=== PATIENT | male | born 1970 | race Caucasian/White ===

== ENCOUNTER 2025-06-02 19:05 | Inpatient (IN) | payer OTHER ==
[~2025-06-02] VITALS: Ht 180.3 cm; Wt 103.9 kg
[2025-06-02 20:23] LABS: APPEARANCE,URINE CLEAR (CLEAR); BLOOD, URINE 1+ Ery/uL (NEGATIVE); LEUKOCYTE ESTERASE ,URINE NEGATIVE (NEGATIVE); NITRITE, URINE NEGATIVE (NEGATIVE); UGLUCOSE NEGATIVE (NEGATIVE)
[2025-06-02 20:34] LABS: SQUAMOUS EPITHELIAL CELL,UR Moderate /HPF (None Seen)
[2025-06-02] MEDS ORDERED: FUROSEMIDE 40 MG/4 ML VIAL ONE (20:39)
[2025-06-02 20:40] LABS: ADD URINE CULTURE NO
[2025-06-02] MEDS: FUROSEMIDE 40 MG/4 ML VIAL IV ONE (20:50)
[2025-06-02 20:52] LABS: PLATELET COUNT (AUTO) 364 K/uL (150-450); RED BLOOD CELL COUNT(AUTO) 4.85 MIL/uL (4.5-6.0); RED CELL DISTRIBUTION WIDTH 17.4 % (11.5-15.0); WHITE BLOOD COUNT (AUTO) 6.2 K/uL (4.3-11.0)
[2025-06-02 20:55] LABS: ACETONE, SERUM NEGATIVE (NEGATIVE)
[2025-06-02 20:58] LABS: CALCIUM, SERUM 8.1 mg/dL (8.5-10.1); CREATININE 1.8 mg/dL (0.6-1.3); SODIUM SERUM 139 mmol/L (136-145); UREA NITROGEN, BLOOD 29 mg/dL (7-18)
[2025-06-02 21:01] LABS: ALCOHOL, BLOOD 34 mg/dL (0-10)
[2025-06-02 21:10] LABS: ASPARTATE AMINOTRANSFERASE 31 U/L (15-37); NT-PRO BNP 6028 pg/mL (0-125); TOTAL PROTEIN, SERUM 5.8 g/dL (6.4-8.2)
[2025-06-02 22:12] LABS: FLOW, VBG 0.00 L/min (0.00-30.00); FRACTIONATED INSPIRED OXYGEN-V 21.0 %; SITE, VBG VBG - N/A; VBG BASE EXCESS -2.6 mmol/L (-2.0-3.0); VBG HCO3 19.9 mmol/L (22.0-29.0); VBG MetHb 0.3 % (0.5-1.5); VBG OXYGEN SATURATION 91.3 % (60.0-85.0); VBG PCO2 28.5 mmHg (38.0-54.0); VBG PH 7.462 (7.320-7.430); VBG PO2 63.5 mmHg (23.0-48.0); VBG TOTAL HEMOGLOBIN 13.7 G/dL (13.5-17.5)
[2025-06-02] MEDS ORDERED: Z GUARD REMEDY 4 OZ OINT TP PRN (22:30)
[2025-06-02] MEDS ORDERED: DEXTROSE 50%-WATER 50 ML DISP.SYRIN IV PRN (22:30)
[2025-06-02] MEDS ORDERED: ACETAMINOPHEN 325 MG TABLET PO PRN (22:30)
[2025-06-02 22:46] VITALS: BP 150/113; TEMP 97.9; O2SAT 99
[2025-06-02 23:00] VITALS: BP 150/113; TEMP 97.9; O2SAT 98
[2025-06-02] MEDS: HEPARIN SODIUM, PORCINE 5000 UNITS/1 ML VIAL SQ SCH (23:15)
[2025-06-02] MEDS ORDERED: LORAZEPAM 1 MG TABLET PO PRN ×2 (23:30)
[2025-06-03] VITALS (8 sets, daily range): BP systolic 138–161; BP diastolic 91–128; TEMP 97.5–98.5; O2SAT 93–100
[2025-06-03 03:53] LABS: BARBITURATE, URINE NEGATIVE (NEGATIVE); BENZODIAZEPINE, URINE NEGATIVE (NEGATIVE); CANNABINOID, URINE NEGATIVE (NEGATIVE); COCCAINE, URINE NEGATIVE (NEGATIVE); OPIATE, URINE NEGATIVE (NEGATIVE)
[2025-06-03 03:54] LABS: AMPHETAMINE, URINE POSITIVE (NEGATIVE)
[2025-06-03] MEDS: INSULIN REGULAR, HUMAN 100 UNIT/ML 3 ML VIAL SQ PRN (06:37)
[2025-06-03] MEDS: BLOOD SUGAR DIAGNOSTIC 1 EACH STRIP IN SCH (06:38)
[2025-06-03] MEDS: PANTOPRAZOLE 40 MG TABLET.DR PO SCH (08:15)
[2025-06-03] MEDS: FUROSEMIDE 40 MG/4 ML VIAL IV SCH (08:16)
[2025-06-03] MEDS: MULTIVIT W/MINERALS 1 TAB TABLET PO SCH (08:16)
[2025-06-03] MEDS: THIAMINE HCL 100 MG TABLET PO SCH (08:16)
[2025-06-03] MEDS: FOLIC ACID 1 MG TABLET PO SCH (08:16)
[2025-06-03 12:28] LABS: CALCIUM, SERUM 8.3 mg/dL (8.5-10.1); CREATININE 1.7 mg/dL (0.6-1.3); PHOSPHORUS 5.2 mg/dL (2.5-4.9); SODIUM SERUM 141.0 mmol/L (136-145); UREA NITROGEN, BLOOD 26.0 mg/dL (7-18)
[2025-06-03 12:31] LABS: LDL 46.0 mg/dL (0-99)
[2025-06-03 12:38] LABS: PLATELET COUNT (AUTO) 393 K/uL (150-450); RED BLOOD CELL COUNT(AUTO) 5.11 MIL/uL (4.5-6.0); RED CELL DISTRIBUTION WIDTH 17.3 % (11.5-15.0); WHITE BLOOD COUNT (AUTO) 6.7 K/uL (4.3-11.0)
[2025-06-03] MEDS: POTASSIUM CHLORIDE 20 MEQ TAB.PRT.SR PO SCH (15:42)
[2025-06-03 16:20] LABS: CREATININE, URINE < 13.0 MG/DL (30.0-125.0); URINE SODIUM, RANDOM 99 mmol/l (40-220); URINE TOTAL PROTEIN 15.3 mg/dL (0-11.9)
[2025-06-04] VITALS (8 sets, daily range): BP systolic 113–174; BP diastolic 97–138; TEMP 97.3–98.4; O2SAT 97–100
[2025-06-04] MEDS: ZOLPIDEM TARTRATE 5 MG TABLET PO PRN (01:02)
[2025-06-04] MEDS: ONDANSETRON HCL/PF 4 MG/2 ML VIAL IVP PRN (01:55)
[2025-06-04] MEDS ORDERED: BISACODYL SUPP (10 MG) 10 MG/SUPP.RECT SUPP.RECT RC PRN (03:30)
[2025-06-04] MEDS ORDERED: HYDROCODONE/APAP 5/325MG TABLET ONE (07:03)
[2025-06-04] MEDS: HYDROCODONE/APAP 5/325MG TABLET PO ONE ×2 (07:06→20:40)
[2025-06-04 07:30] LABS: PLATELET COUNT (AUTO) 368 K/uL (150-450); RED BLOOD CELL COUNT(AUTO) 5.15 MIL/uL (4.5-6.0); RED CELL DISTRIBUTION WIDTH 17.7 % (11.5-15.0); WHITE BLOOD COUNT (AUTO) 7.6 K/uL (4.3-11.0)
[2025-06-04 07:54] LABS: CREATINE KINASE, TOTAL 195.0 U/L (39-308)
[2025-06-04 07:57] LABS: ASPARTATE AMINOTRANSFERASE 38.0 U/L (15-37); CALCIUM, SERUM 7.9 mg/dL (8.5-10.1); CREATININE 1.9 mg/dL (0.6-1.3); PHOSPHORUS 4.4 mg/dL (2.5-4.9); SODIUM SERUM 139.0 mmol/L (136-145); TOTAL PROTEIN, SERUM 5.9 g/dL (6.4-8.2); UREA NITROGEN, BLOOD 32.0 mg/dL (7-18)
[2025-06-04] MEDS: FUROSEMIDE 100 MG/10 ML VIAL IV SCH (10:41)
[2025-06-04] MEDS: POTASSIUM CHLORIDE 20 MEQ TAB.PRT.SR PO ONE (10:41)
[2025-06-05 07:20] LABS: PLATELET COUNT (AUTO) 308 K/uL (150-450); RED BLOOD CELL COUNT(AUTO) 4.85 MIL/uL (4.5-6.0); RED CELL DISTRIBUTION WIDTH 17.3 % (11.5-15.0); WHITE BLOOD COUNT (AUTO) 5.3 K/uL (4.3-11.0)
[2025-06-05 07:45] LABS: ASPARTATE AMINOTRANSFERASE 26.0 U/L (15-37); CALCIUM, SERUM 7.4 mg/dL (8.5-10.1); CREATININE 1.7 mg/dL (0.6-1.3); PHOSPHORUS 4.2 mg/dL (2.5-4.9); SODIUM SERUM 138.0 mmol/L (136-145); TOTAL PROTEIN, SERUM 5.3 g/dL (6.4-8.2); UREA NITROGEN, BLOOD 29.0 mg/dL (7-18)
[2025-06-05 08:19] VITALS: BP 132/96; TEMP 98.4; O2SAT 99
[2025-06-05] MEDS: MAGNESIUM OXIDE 400 MG TABLET PO ONE (10:22)
[2025-06-05] MEDS: POTASSIUM CHLORIDE 20 MEQ TAB.PRT.SR PO ONE (10:22)
[2025-06-05] MEDS ORDERED: HYDR-4076 PO (10:33)
[2025-06-05] MEDS ORDERED: FURO-145 PO (10:33)
[2025-06-05 11:45] VITALS: BP 144/98; TEMP 98.3; O2SAT 99
[2025-06-05] MEDS: MUPIROCIN OINT 2% 22 GM TUBE TP SCH (11:50)
[2025-06-05 12:17] VITALS: BP 140/98
[2025-06-05 14:07] LABS: PTH, INTACT 64 pg/mL (15-65)
== END 2025-06-05 13:16 | disposition home or self-care (01) | DRG 194 ==
LOC: ER 19:15 → MED 22:23 → TELE 22:38
PROVIDERS: ADMIT Registered Nurse Psychiatric/Mental Health; ATTEND Internal Medicine
DX: I13.0 Hypertensive heart and chronic kidney disease with heart failure and stage 1 through stage 4 chronic kidney disease, or unspecified chronic kidney disease (principal); E44.1 Mild protein-calorie malnutrition; E83.51 Hypocalcemia; E88.09 Other disorders of plasma-protein metabolism, not elsewhere classified; D63.8 Anemia in other chronic diseases classified elsewhere; E11.22 Type 2 diabetes mellitus with diabetic chronic kidney disease; N17.9 Acute kidney failure, unspecified; N18.9 Chronic kidney disease, unspecified; E83.42 Hypomagnesemia; E87.6 Hypokalemia; I50.23 Acute on chronic systolic (congestive) heart failure; E78.5 Hyperlipidemia, unspecified; F15.10 Other stimulant abuse, uncomplicated; F17.210 Nicotine dependence, cigarettes, uncomplicated; E11.65 Type 2 diabetes mellitus with hyperglycemia; Z68.31 Body mass index [BMI] 31.0-31.9, adult; Z59.00 Homelessness unspecified; Z71.6 Tobacco abuse counseling; F10.10 Alcohol abuse, uncomplicated; S69.81XA Other specified injuries of right wrist, hand and finger(s), initial encounter; W19.XXXA Unspecified fall, initial encounter; Y93.9 Activity, unspecified; Y92.89 Other specified places as the place of occurrence of the external cause
CPT/HCPCS: 36415; 71045-TC; 73120-TC; 76770-TC; 80048-TC; 80053-TC; 80061-TC; 80076-TC; 81001; 82010-TC; 82550-TC; 82570-TC; 82803-TC; 82962-TC; 83735-TC; 83880; 83970; 84100-TC; 84155; 84165; 84300-TC; 84484-TC; 85025-TC; 87081-TC; 93307-TC; G0378; G0480; J1644; J1815; J1938; J2405